=== PATIENT | female | born 1940 | race Asian ===

== ENCOUNTER 2020-01-03 10:14 | Emergency (ER) | payer OTHER ==
[~2020-01-03] VITALS: Ht 165.1 cm; Wt 54.4 kg
[2020-01-03 11:59] VITALS: BP 119/78
== END 2020-01-03 12:01 | disposition home or self-care (01) ==
LOC: ER 10:14
DX: N63.0 Unspecified lump in unspecified breast (principal); Z88.0 Allergy status to penicillin